=== PATIENT | male | born 1990 | race Caucasian/White ===

== ENCOUNTER 2022-05-23 02:58 | Emergency (ER) | payer SELFPAY ==
[2022-05-23] VITALS (10 sets, daily range): BP systolic 00–165; BP diastolic 00–100; PULSE 0–120; RESP 0–18; TEMP -17.7–36.7; O2SAT 0–100; BMI 22.8
--- NOTE | 2022-05-23 03:00 | PC.NURSE ---
Patient is currently sitting in his bed with seizure pads in place. Patient is staring at the wall and is talking to himself. Patient is chewing on his tongue with obvious scar tissue. Nursing staff advised patient to stop chewing his tongue. His mouth was cleaned using a 10cc syringe and water. Patient continues to chew tongue. MD notified of nursing concerns of patient continuing to chew his tongue after being told to stop. MD gave an order for 1mg ativan IV. Medication given to patient.
--- NOTE | 2022-05-23 03:21 | PC.NURSE ---
Patient checked into er with c/o tongue injury following a seizure. Once pt was checked into the ER the patient refused to have any labs drawn or vital signs checked. Patient stated that he did not want to be here and didn't want to be seen or touched. We advised patient that he did not have to be checked if he did not wish to. Patient decided to leave the hospital without being seen.
--- NOTE | 2022-05-23 03:30 | PC.NURSE ---
patients clothing removed and patient was placed in a hospital gown to ensure patient safety.
--- NOTE | 2022-05-23 04:23 | PC.NURSE ---
Patient continues to chew tongue. Patient is looking at the wall on the right side of his room and is chewing on his tongue. Patient is crying and speaking to himself. Nursing staff again asked patient to stop chewing his tongue. Patient refused.
--- NOTE | 2022-05-23 04:31 | PC.NURSE ---
Patient disloged his iv. Pt continues to be confused and focused on the wall. Will answer questions when asked multiple times.
[2022-05-23 04:49] LABS: Blood Urea Nitrogen 32 mg/dl (9-20); Calcium 9.4 mg/dl (8.4-10.2); Carbon Dioxide 26 mmol/L (22.0-30.0); Chloride 100 mmol/L (98-107); Creatinine Clearance Estimated 94 mL/min (50-200); Estimated Glomerular Filt Rate 79 ml/min (>60); GFR (African American) 95 ML/MIN (>60); Glucose 129 mg/dl (74-100); Sodium 136 mmol/L (136-145)
[2022-05-23 04:50] LABS: Acetaminophen < 10 ug/ml (10-30); Carbamazepine (Tegretol) < 3.0 ug/ml (4.0-12.0)
--- NOTE | 2022-05-23 05:00 | PC.NURSE ---
Called patients and left a message for her to return our call regarding at [phone]
[2022-05-23 05:02] LABS: Basophils # 0.1 K/mm3 (0-0.2); Basophils % 1.3 % (0.1-2.0); Eosinophils % 0.2 % (0.1-12.0); Hematocrit 35.8 % (42.0-52.0); Hemoglobin 11.6 g/dL (14.1-18.0); Lymphocytes # 3.1 K/mm3 (0.7-4.5); Lymphocytes % 28.4 % (10-50); Mean Corpuscular HGB Conc 32.4 g/dL (31.8-35.4); Mean Corpuscular Hemoglobin 31.5 pg (27.0-31.2); Mean Corpuscular Volume 97.3 fl (80-94); Mean Platelet Volume 8.2 fl (7.4-10.4); Monocytes # 0.9 K/mm3 (0.1-1.0); Neutrophils # 6.8 K/mm3 (1.8-7.8); Platelet Count 388 K/mm3 (142-424); Red Blood Count 3.68 M/mm3 (4.60-6.20); Red Cell Distribution Width 13.7 % (11.5-17.5)
[2022-05-23 05:24] LABS: Coronavirus 19, PCR Not Detected (NotDetected); Influenza A, PCR Not Detected (NotDetected); Influenza B, PCR Not Detected (NotDetected)
[2022-05-23 05:42] LABS: Microscopic, Urine URINE MICROSCOPIC (MICROSCOPIC)
[2022-05-23 05:48] LABS: Appearance,Urine CLEAR (Clear); Bilirubin,Urine Negative (Negative); Blood, Urine Negative (Negative); Color,Urine YELLOW (Yellow); Glucose,Urine (UA) Negative (Negative); Ketones,Urine 1+ (Negative); Leukocyte Esterase,Urine Negative (Negative); Nitrate,Urine Negative (Negative); Protein,Urine Negative (Negative); Urobilinogen,Urine 0.2 EU/dl (0.2)
[2022-05-23 05:51] LABS: Bacteria,Urine Trace /lpf; Squamous Epithelial Cell,Urine Occasional #/hpf (0-5)
[2022-05-23 05:55] LABS: Barbiturates Screen,Urine Negative ng/ml (<200)
[2022-05-23 05:56] LABS: Benzodiazepines Screen,Urine Negative ng/ml (<200)
[2022-05-23 05:57] LABS: Cannabinoid Screen,Urine Positive ng/ml (<50)
[2022-05-23 05:58] LABS: Cocaine Screen,Urine Negative ng/ml (<300)
[2022-05-23 05:59] LABS: Methadone Screen,Urine Negative ng/ml (<300); Opiate Screen,Urine Negative ng/ml (<300)
[2022-05-23 06:00] LABS: Phencyclidine Screen,Urine Negative ng/ml (<25)
[2022-05-23 06:37] LABS: Amphetamine/Metha Screen,Urine Positive ng/ml (<1000)
--- NOTE | 2022-05-23 07:05 | PC.NURSE ---
report received from donna Reyna. sitter remains at bedside. no needs voiced by patient.
--- NOTE | 2022-05-23 07:19 | PC.NURSE ---
TOAN Biggs is now at BS for 1:1. She relieved TOAN Mosley this morning
--- NOTE | 2022-05-23 07:19 | HMH.EDAMS ---
ED Disposition Clinical Impression: Tongue biting, Amphetamine abuse Tongue injury Qualifiers: Encounter type: initial encounter Qualified Code(s): S09.93XA - Unspecified injury of face, initial encounter Disposition: Home, Self-Care Condition on Discharge: Fair Instructions: DI for Substance Use Disorder Additional Instructions: use meds and see pcp for follow up Prescriptions: clindamycin HCL [Clindamycin HCl] 300 mg PO TID #30 cap Transmission Status: Pending to [id number] Referrals: Provider,Referral, [Primary Care Provider] - - Critical Care Critical Care Time: No Attestation: On 05/23/22, the high probability of a clinically significant, sudden or life threatening deterioration of the following system(s) required my full and direct attention, intervention and personal management. The time I documented below is in addition to time spent performing reported procedures but includes the following listed in this critical care notation. Medical Decision Making - Medical Records Medical records reviewed: Yes: I reviewed the patient's medical records. - Jose Angel Inquiry Pt receiving controlled substance: No Vital Signs: 05/23/22 03:14 05/23/22 03:58 05/23/22 05:18 Temperature 0 F L 98.1 F Temperature Source Oral Axillary Pulse Rate 0 L 120 H Pulse Rate [Apical] 80 Respiratory Rate 0 L 18 Blood Pressure 00/00 L 157/90 H Blood Pressure [Right Arm] 158/100 H Blood Pressure Mean Blood Pressure Mean [Right Arm] 119 Blood Pressure Source Automatic Cuff Blood Pressure Source [Right Arm] Automatic Cuff Blood Pressure Position Sitting Blood Pressure Position [Right Arm] Sitting 02 Sat by Pulse Oximetry 98 99 Oxygen Delivery Method Room Air Room Air 05/23/22 05:30 05/23/22 06:00 05/23/22 06:30 Temperature Temperature Source Pulse Rate 116 H 119 H 118 H Pulse Rate [Apical] Respiratory Rate Blood Pressure 161/97 H 163/92 H 165/97 H Blood Pressure [Right Arm] Blood Pressure Mean 117 123 114 Blood Pressure Mean [Right Arm] Blood Pressure Source Blood Pressure Source [Right Arm] Blood Pressure Position Blood Pressure Position [Right Arm] 02 Sat by Pulse Oximetry 99 100 100 Oxygen Delivery Method 05/23/22 07:31 Temperature Temperature Source Pulse Rate 120 H Pulse Rate [Apical] Respiratory Rate Blood Pressure 149/93 H Blood Pressure [Right Arm] Blood Pressure Mean Blood Pressure Mean [Right Arm] Blood Pressure Source Automatic Cuff Blood Pressure Source [Right Arm] Blood Pressure Position Supine Blood Pressure Position [Right Arm] 02 Sat by Pulse Oximetry 99 Oxygen Delivery Method Room Air - Lab Data Lab results reviewed: Yes: I reviewed the patient's lab results. Lab Results 05/23/22 04:14: WBC 11.0 H, RBC 3.68 L, Hgb 11.6 L, Hct 35.8 L, MCV 97.3 H, MCH 31.5 H, MCHC 32.4, RDW 13.7, Plt Count 388, MPV 8.2, Neut % (Auto) 62.0, Lymph % (Auto) 28.4, Harney % (Auto) 8.0, Eos % (Auto) 0.2, Baso % (Auto) 1.3, Neut # (Auto) 6.8, Lymph # (Auto) 3.1, Harney # (Auto) 0.9, Eos # (Auto) 0.0, Baso # (Auto) 0.1 05/23/22 04:14: Sodium 136, Potassium 4.0, Chloride 100, Carbon Dioxide 26, Anion Gap 14.0, BUN 32 H, Creatinine 1.10, Estimated Creat Clear 94, Estimated GFR 79, Est GFR ( Amer) 95, Glucose 129 H, Calcium 9.4, Salicylates 1.0 L, Acetaminophen < 10 L, Carbamazepine < 3.0 L 05/23/22 04:14: Plasma/Serum Alcohol < 10 05/23/22 05:13: SARS-CoV-2 (PCR) Not detected, Influenza A Untype (PCR) Not detected, Influenza Type B (PCR) Not detected 05/23/22 05:37: Urine Color Yellow, Urine Appearance Clear, Urine pH 6.0, Ur Specific Vance 1.020, Urine Protein Negative, Urine Glucose (UA) Negative, Urine Ketones 1+, Urine Blood Negative, Urine Nitrate Negative, Urine Bilirubin Negative, Urine Urobilinogen 0.2, Ur Leukocyte Esterase Negative, Urine RBC None, Urine WBC 3-5, Ur Squamous Epith Cells Occasional, Urine Bacteria Trace 05/23/22
[2022-05-23 07:25] LABS: Ethyl Alcohol < 10 mg/dl (0-10)
--- NOTE | 2022-05-23 07:29 | PC.NURSE ---
called for a meal tray
--- NOTE | 2022-05-23 07:39 | PC.NURSE ---
Dietary brought breakfast tray. I delivered to ED room 6 for the patient; he states, i dont want anything right now. I left sitting at BS on BS table with everything accessible. Dian, TOAN at BS.
--- NOTE | 2022-05-23 07:46 | PC.NURSE ---
ISAI FAM at assessing pt.
--- NOTE | 2022-05-23 07:50 | PC.NURSE ---
attempted to call pt with number listed on demographics. Phone number is not pt phone number
--- NOTE | 2022-05-23 07:54 | PC.NURSE ---
contacted pt step mother who states the is working but she will have her call the ER
--- NOTE | 2022-05-23 08:07 | PC.NURSE ---
Pt called, informed her pt was back to his baseline per MD and that he will be DC. States she will try to come get him when she gets a break at work.
--- NOTE | 2022-05-23 08:24 | PC.NURSE ---
Patients ride has arrived and is at BS. Ileana RN at BS going over discharge instructions with patient and family
--- NOTE | 2022-05-23 08:31 | PC.NURSE ---
d/c instructions verbalized with . per request, name and numbers of psychiatric facilities given to . signed d/c sheet and pt ambulated out of department with no issues.
== END 2022-05-23 08:32 | disposition home or self-care (01) ==
PROVIDERS: Emergency Provider Emergency Medicine
DX: K13.1 Cheek and lip biting (principal); F15.10 Other stimulant abuse, uncomplicated; F12.90 Cannabis use, unspecified, uncomplicated; S09.93XA Unspecified injury of face, initial encounter; R56.9 Unspecified convulsions
CPT/HCPCS: 80048; 80156; 80305; 80329; 81001; 85025; 96365; 96366; 96375; 99284; C9803; U0003; U0005

== ENCOUNTER 2022-05-23 16:50 | Emergency (ER) | payer SELFPAY ==
[2022-05-23 16:51] VITALS: BP 170/101; PULSE 129; RESP 18; TEMP 36.9; O2SAT 96; BMI 26.6
--- NOTE | 2022-05-23 17:05 | PC.NURSE ---
Cabrera planned giving officer at BS with patient.
[2022-05-23 17:09] VITALS: PULSE 122; O2SAT 95
--- NOTE | 2022-05-23 17:22 | PC.NURSE ---
notified ER MD of pt presenting injuries, ER MD gave verbal orders for CT head, CT cspine, CT facial bones
--- NOTE | 2022-05-23 17:34 | PC.NURSE ---
notified rad of CT orders, spoke with Jana
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
--- NOTE | 2022-05-23 17:43 | PC.NURSE ---
pt back from ct , police at bedside
--- NOTE | 2022-05-23 17:45 | PC.NURSE ---
Pt refused all CT's
--- NOTE | 2022-05-23 17:46 | PC.NURSE ---
Dr Myers in with pt
[2022-05-23 18:00] VITALS: BP 160/100; PULSE 120; RESP 20; TEMP 36.9; O2SAT 94
== END 2022-05-23 18:01 ==
PROVIDERS: Emergency Provider Emergency Medicine; PCP Emergency Medicine
DX: Z02.89 Encounter for other administrative examinations (principal); F15.10 Other stimulant abuse, uncomplicated; S09.93XA Unspecified injury of face, initial encounter; S60.221A Contusion of right hand, initial encounter; S00.83XA Contusion of other part of head, initial encounter; Y04.0XXA Assault by unarmed brawl or fight, initial encounter
CPT/HCPCS: 99282

== ENCOUNTER 2022-12-29 09:29 | Emergency (ER) | payer OTHER, MEDICAID, SELFPAY ==
[2022-12-29 09:47] VITALS: BP 158/105; PULSE 143; RESP 20; O2SAT 98; BMI 28.1
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
[2022-12-29 10:18] VITALS: BP 120/80; PULSE 100; RESP 18; TEMP 37; O2SAT 99
== END 2022-12-29 10:23 ==
PROVIDERS: Emergency Provider Emergency Medicine
DX: S00.83XA Contusion of other part of head, initial encounter (principal); F15.90 Other stimulant use, unspecified, uncomplicated; V49.40XA Driver injured in collision with unspecified motor vehicles in traffic accident, initial encounter
CPT/HCPCS: 99283

== ENCOUNTER 2023-06-30 22:21 | Emergency (ER) | payer OTHER, MEDICAID, SELFPAY ==
[2023-06-30 22:21] VITALS: BP 144/100; PULSE 64; RESP 20; TEMP 38.8; O2SAT 96; BMI 25.0
--- NOTE | 2023-06-30 22:50 | PC.NURSE ---
Manual BP 140/100
--- NOTE | 2023-06-30 22:53 | PC.NURSE ---
Dr. Hines at BS
--- NOTE | 2023-06-30 22:55 | HMH.EDGENADL ---
Discharge Plan Disposition Patient Disposition: Home, Self-Care Condition: Fair Prescriptions Prescriptions: No Action methocarbamol 500 MG tablet 500 mg PO DAILY trazodone 100 MG tablet 100 mg PO DAILY fluoxetine 20 MG tablet 20 mg PO DAILY chlorhexidine gluconate 250 ML liquid 250 ml TP DAILY olanzapine 20 MG tablet 20 mg PO DAILY bupropion HCl 150 MG tablet extended release 24 hr 150 mg PO DAILY carbamazepine 200 MG capsule, ER multiphase 12 hr 200 mg PO DAILY omeprazole 20 MG tablet,delayed release (DR/EC) 20 mg PO DAILY guanfacine 1 MG tablet extended release 24 hr 1 mg PO DAILY clindamycin HCl 300 MG capsule 300 mg PO TID Qty: 30 0RF Referrals Follow up/Referrals: Provider,Referral, [Primary Care Provider] - See instructions Activity Restrictions/Add. Instructions Additional Instructions/Restrictions: Use the provided neomycin eyedrops 3 drops in each eye 4 times daily for the next week. Use the other eyedrops if needed for pain. Avoid illicit substances. Wash your hands frequently to avoid spreading infection from your eyes. Follow-up with your primary care physician. Return to the emergency department with new or worsening symptoms. Clinical Impressions Clinical Impression: Medical clearance for incarceration, Conjunctivitis Discharge ED Provider: Francisco Shepard General Adult HPI <Nasir Hines MD - Last Filed: 06/30/23 23:01> General Chief complaint: Medical Clearance Stated complaint: medical clearance Time Seen by Provider: 06/30/23 22:21 Mode of Arrival: Ambulatory Source of Information: Law Enforcement Limitations: No Limitations Description of Symptoms (Recalled from ER Triage Doc. by RN): pt is here for medical clearance. pt has no c/o History of Present Illness HPI narrative: Patient is a 32-year-old male who presents for medical clearance. Patient is largely noncompliant with my questioning upon arrival. He denies ingestions. Police state that he has had multiple complaints on him today where he was found with sweating, refusing answer questions, refusing ingestants. Upon asking patient initially he understands where he is what year it is. He denies ingestants. States that he has had red eyes over the course of the day. However upon subsequent questioning it appears he seems to nod off. He denies headache, chest pain, abdominal pain, other acute complaints at this time. Related Data Home Medications Medication Instructions Recorded Confirmed bupropion HCl 150 mg 24 hr tablet, 150 mg PO DAILY seizures 05/23/22 05/23/22 extended release carbamazepine 200 mg 200 mg PO DAILY seizures 05/23/22 05/23/22 capsule,extended release [id number] chlorhexidine gluconate 2 % 250 ml topical DAILY mouth sore 05/23/22 05/23/22 topical liquid fluoxetine 20 mg tablet 20 mg PO DAILY antidepressant 05/23/22 05/23/22 guanfacine 1 mg tablet,extended 1 mg PO DAILY add 05/23/22 05/23/22 release 24 hr methocarbamol 500 mg tablet 500 mg PO DAILY Pain 05/23/22 05/23/22 olanzapine 20 mg tablet 20 mg PO DAILY antipsychotic 05/23/22 05/23/22 omeprazole 20 mg tablet,delayed 20 mg PO DAILY GERD 05/23/22 05/23/22 release trazodone 100 mg tablet 100 mg PO DAILY antidepressant 05/23/22 05/23/22 Previous Rx's Medication Instructions Recorded clindamycin HCl 300 mg capsule 300 mg PO TID #30 caps 05/23/22 Allergies Allergy/AdvReac Type Severity Reaction Status Date / Time No Known Allergies Allergy Verified 10/09/18 16:51 [facility] <Nasir Hines MD - Last Filed: 06/30/23 23:01> [facility] Disclaimer: The information contained in this section may have been updated after the patient was seen, as this information can be updated by other users. Social History (Updated 06/30/23 @ 23:01 by Nasir Hines MD) Smoking Status: Current every day smoker tobacco type: cigarettes alcohol intake: never substance use type: carrillo
--- NOTE | 2023-06-30 23:08 | PC.NURSE ---
Pt refused to have labs drawn.
--- NOTE | 2023-06-30 23:14 | PC.NURSE ---
Pt refused UA as well
--- NOTE | 2023-07-01 00:33 | PC.NURSE ---
Dr. Shepard at BS
[2023-07-01 00:46] VITALS: BP 137/87; PULSE 67; RESP 18; TEMP 37.6; O2SAT 96
== END 2023-07-01 00:50 | disposition home or self-care (01) ==
PROVIDERS: Emergency Provider Emergency Medicine
DX: H10.33 Unspecified acute conjunctivitis, bilateral (principal); F17.210 Nicotine dependence, cigarettes, uncomplicated
CPT/HCPCS: 99283

== ENCOUNTER 2023-07-01 08:15 | Inpatient (IN) | payer MEDICAID, SELFPAY ==
[2023-07-01] VITALS (19 sets, daily range): BP systolic 96–150; BP diastolic 58–94; PULSE 96–130; RESP 16–34; TEMP 36.4–37.2; O2SAT 93–100; BMI 25.1; BMI 26.6
--- NOTE | 2023-07-01 08:16 | XR_ITS ---
FINAL REPORT CLINICAL HISTORY: AMS COMPARISON: None FINDINGS: The lung porras are underinflated. The heart size is normal. The mediastinum is normal. There is no focal infiltrate or edema. There are no pleural effusions. There is no pneumothorax. There is no osseous abnormality. IMPRESSION: No acute cardiopulmonary process Underinflated lung porras bilaterally. Reviewed, Interpreted and Dictated by Alok Perdue MD Transcribed by Vickie Molina Authenticated and . [facility]
--- NOTE | 2023-07-01 08:16 | CT_ITS ---
FINAL REPORT TECHNIQUE: Axial CT images were performed through the head. Coronal and sagittal reformatted images were submitted. This study was performed with techniques to keep radiation doses as low as reasonably achievable (ALARA). Individualized dose reduction techniques using automated exposure control or adjustment of mA and/or kV according to the patient's size were employed. CLINICAL HISTORY: AMS COMPARISON: None FINDINGS: The ventricles are normal in size. There is no evidence of hemorrhage. There is no mass or edema identified. There is no abnormal extra-axial fluid seen. The sinuses are well aerated. IMPRESSION: No acute intracranial process. Reviewed, Interpreted and Dictated by Alok Perdue MD Transcribed by Vickie Molina Authenticated and [facility]
--- NOTE | 2023-07-01 08:31 | HMH.EDGENADL ---
Discharge Plan Disposition Patient Disposition: Admitted Chief Complaint: Altered Mental Status Clinical Impressions Clinical Impression: Methamphetamine use, Non-traumatic rhabdomyolysis, CARINA (acute kidney injury), SIRS (systemic inflammatory response syndrome), Encephalopathy, Biliary sludge, Ground glass opacity present on imaging of lung Discharge ED Provider: Babita Chappell General Adult HPI General Chief complaint: Altered Mental Status Stated complaint: ams Time Seen by Provider: 07/01/23 08:16 Mode of Arrival: Wheelchair History of Present Illness HPI narrative: This patient is a 32-year-old male with a history of amphetamine abuse with multiple previous evaluations for medical clearance for incarceration related to this on medical record review presenting to the emergency department for evaluation with concern for altered mental status. Patient was evaluated last night for med clearance. At that time, he was alert, oriented, buut febrile, diaphoretic, and having rhythmic movements and fidgeting. Patient was refusing all work-up at that time and it was documented that the patient had medical capacity. He then was alert and oriented. His mental status improved throughout observation over the night and his symptoms subsided. Given this, the patient was deemed to be medically clear and appropriate for discharge. He was discharged, however he did not leave hospital property. He stayed over at the side of the building according to workers at the hospital who saw him there. Workers at the hospital Going out to check on him, and he was unable to answer questions appropriately with worsened rhythmic movements and diaphoresis. Given this, they brought the patient back in via wheelchair. Patient does not contribute to history given acute encephalopathy. Related Data Home Medications Medication Instructions Recorded Confirmed bupropion HCl 150 mg 24 hr tablet, 150 mg PO DAILY seizures 05/23/22 05/23/22 extended release carbamazepine 200 mg 200 mg PO DAILY seizures 05/23/22 05/23/22 capsule,extended release [id number] chlorhexidine gluconate 2 % 250 ml topical DAILY mouth sore 05/23/22 05/23/22 topical liquid fluoxetine 20 mg tablet 20 mg PO DAILY antidepressant 05/23/22 05/23/22 guanfacine 1 mg tablet,extended 1 mg PO DAILY add 05/23/22 05/23/22 release 24 hr methocarbamol 500 mg tablet 500 mg PO DAILY Pain 05/23/22 05/23/22 olanzapine 20 mg tablet 20 mg PO DAILY antipsychotic 05/23/22 05/23/22 omeprazole 20 mg tablet,delayed 20 mg PO DAILY GERD 05/23/22 05/23/22 release trazodone 100 mg tablet 100 mg PO DAILY antidepressant 05/23/22 05/23/22 Previous Rx's Medication Instructions Recorded clindamycin HCl 300 mg capsule 300 mg PO TID #30 caps 05/23/22 Allergies Allergy/AdvReac Type Severity Reaction Status Date / Time No Known Allergies Allergy Verified 10/09/18 16:51 [facility] Disclaimer: The information contained in this section may have been updated after the patient was seen, as this information can be updated by other users. Social History Smoking Status: Current every day smoker tobacco type: cigarettes alcohol intake: never substance use type: marijuana, heroin and sedatives current occupational status: other Travel in the last 8 weeks: None ROS Obtained: Yes unobtainable due to mental status Physical Exam General General appearance: alert and in distress Comment: Awake, fidgeting, flailing around with choreathetotic movements. Diaphoretic and very disheveled-appearing Head Head exam: atraumatic and normocephalic Eye Eye exam: Present normal appearance, PERRL and EOMI ENT ENT exam: Present normal exam, normal oropharynx, mucous membranes dry and normal external ear exam Neck Neck exam: Present normal inspection, full ROM and trachea midline; Absent tenderness Chest Chest inspection: Present normal inspection and
[2023-07-01 08:34] LABS: Basophils # 0.1 K/mm3 (0-0.2); Basophils % 0.3 % (0.1-2.0); Eosinophils # 0.2 K/mm3 (0.0-0.4); Eosinophils % 0.9 % (0.1-12.0); Hematocrit 49.1 % (42.0-52.0); Hemoglobin 16.2 g/dL (14.1-18.0); Lymphocytes # 4.1 K/mm3 (0.7-4.5); Mean Corpuscular HGB Conc 32.9 g/dL (31.8-35.4); Mean Corpuscular Hemoglobin 30.6 pg (27.0-31.2); Mean Corpuscular Volume 92.9 fl (80-94); Mean Platelet Volume 8.2 fl (7.4-10.4); Monocytes # 1.7 K/mm3 (0.1-1.0); Monocytes % 7.4 % (1.7-9.3); Neutrophils % 73.5 % (37.0-80.0); Platelet Count 331 K/mm3 (142-424); Red Blood Count 5.28 M/mm3 (4.60-6.20); Red Cell Distribution Width 14.6 % (11.5-17.5); White Blood Count 23.1 K/mm3 (4.8-10.8)
[2023-07-01 08:36] LABS: MANUAL DIFFERENTIAL MANUAL DIFFERENTIAL (MANUAL DIFF)
--- NOTE | 2023-07-01 08:41 | ECG_ITS ---
APPROVED REPORT Exam: Resting ECG HR:121 bpm ECG Measurements Heart Rate 121 AXES IN 119 P 57 QRSd 84 QRS 55 QT 307 T 3 QTc 379 Conclusion SINUS TACHYCARDIA WITH SHORT IN INTERVAL ABNORMAL RHYTHM ECG UNCONFIRMED REPORT Electronically signed by : Marcus Nation MD 07/02/2023 19:45:45
[2023-07-01 08:44] LABS: Chloride 100 mmol/L (98-107)
[2023-07-01 08:45] LABS: Potassium 4.6 mmoL/L (3.5-5.1); Sodium 139 mmol/L (136-145)
[2023-07-01 08:47] LABS: Alanine Aminotransferase 213 U/L (12-78); Alkaline Phosphatase 106 U/L (38-126); Anion Gap 16.6 mEq/L (5-15); Aspartate Amino Transferase 640 U/L (17-59); Bilirubin,Total 1.7 mg/dl (0.2-1.3); Blood Urea Nitrogen 50 mg/dl (9-20); Carbon Dioxide 27 mmol/L (22.0-30.0); Estimated Glomerular Filt Rate 42 ml/min (>60); GFR (African American) 50 ML/MIN (>60); Lymphocytes % 27 % (10-50); Monocytes % 5 % (2-9); Neutrophils % 68 % (42-76); Total Cells Counted 100
[2023-07-01 08:48] LABS: Albumin Level 4.8 g/dl (3.5-5.0); Albumin/Globulin Ratio 1.2 (1.1-1.8); Calcium 9.8 mg/dl (8.4-10.2); Globulin 3.9 g/dL (1.3-3.2); Glucose 145 mg/dl (74-100); Platelet Estimate Normal; RBC Morphology Normal; Total Protein,Serum 8.7 g/dl (6.3-8.2)
[2023-07-01 08:56] LABS: Ethyl Alcohol < 10 mg/dl (0-10); Lactic Acid 2.1 mmol/L (0.7-2.1)
[2023-07-01 08:57] LABS: Acetaminophen < 10 ug/ml (10-30); Creatinine Clearance Estimated 63 mL/min (50-200); Salicylate < 1.0 mg/dL (2.0-20.0)
--- NOTE | 2023-07-01 08:59 | CT_ITS ---
FINAL REPORT TECHNIQUE: The patient was injected with IV contrast. Axial images were obtained through the chest in a PE protocol. 3-D reconstruction images were also performed. Individualized dose reduction techniques using automated exposure control or adjustment of the MA and/or KV according to patient's size were employed. CLINICAL HISTORY: AMS, hypoxic resp failure COMPARISON: None FINDINGS: Mediastinal vasculature is adequately opacified. No pulmonary artery filling defects are identified to suggest PE. There is no aortic dissection. There is no axillary adenopathy. There is no hilar or mediastinal adenopathy. The heart size is normal. There is no pericardial or pleural effusion. There are patchy groundglass opacities in the periphery of both lungs which could be related to bilateral pneumonia. Limited images of the upper abdomen are unremarkable. IMPRESSION: No pulmonary embolus or dissection. Patchy areas of groundglass opacity. Reviewed, Interpreted and Dictated by Alok Perdue MD Transcribed by Liv Adair Authenticated and . [facility]
--- NOTE | 2023-07-01 08:59 | CT_ITS ---
FINAL REPORT TECHNIQUE: After the administration of oral and intravenous contrast, axial images were obtained through the abdomen and pelvis by computed tomography. The study was performed with techniques to keep radiation dose as low as reasonably achievable, (ALARA). Individual dose reduction techniques using automated exposure control or adjustment of mA and/or kV according to the patient's size were employed. CLINICAL HISTORY: transaminitis, AMS COMPARISON: None FINDINGS: Abdomen: There is a localized opacity in the left lung base best seen on axial image #12 measuring 1 cm in size. There is mild fatty infiltration of the liver present. The gallbladder is present. The spleen, pancreas, adrenals and kidneys appear unremarkable. The aorta is normal in caliber. There is no free fluid or adenopathy. Pelvis: The appendix is not identified. The urinary bladder is unremarkable. There is no free fluid or adenopathy. IMPRESSION: Mild fatty infiltration of the liver. Localized opacity left lung base measuring 1 cm in size, favor inflammatory etiology but neoplasm cannot be excluded. Would recommend a follow-up chest CT in 1 to 3 months for follow-up. Reviewed, Interpreted and Dictated by Alok Perdue MD Transcribed by Vickie Molina Authenticated and [facility]
[2023-07-01 09:01] LABS: Troponin I < 0.01 ng/ml (0.00-0.034)
[2023-07-01 09:05] LABS: T4 (Thyroxine) 16.6 ug/dl (5.53-11.0)
--- NOTE | 2023-07-01 09:07 | US_ITS ---
FINAL REPORT CLINICAL HISTORY: transaminitis, AMS FINDINGS: Sonographic images of the right upper quadrant were obtained. The pancreas is partially obscured. Liver demonstrates areas of focal fatty infiltration. There is sludge in the gallbladder without evidence of stones. There is no evidence of biliary ductal dilatation.The common duct measures 3 mm. Limited images of the right kidney are unremarkable. IMPRESSION: Focal fatty infiltration of the liver. Gallbladder sludge without evidence of stones. Reviewed, Interpreted and Dictated by Alok Perdue MD Transcribed by Anali Bean Authenticated and [facility]
--- NOTE | 2023-07-01 09:08 | PC.NURSE ---
pt in CT at this time maurirn with pt.
[2023-07-01 09:19] LABS: Thyroid Stimulating Hormone 1.02 uIU/mL (0.465-4.68)
[2023-07-01 09:25] LABS: Procalcitonin 0.919 ng/mL (0.0-2.0)
--- NOTE | 2023-07-01 09:42 | PC.NURSE ---
US at bedside
[2023-07-01 09:56] LABS: VBG Base Excess -0.9 mmol/L (-2.4-2.3); VBG Oxygen Saturation 95.4 % (50-70); VBG PCO2 40.6 mmol/L (35-51); VBG PH 7.39 mmol/L (7.31-7.41); VBG Total CO2 25.3 mmol/L (23-27)
--- NOTE | 2023-07-01 10:15 | PC.NURSE ---
Mary JOYA at bedside for 1-1 obs.
--- NOTE | 2023-07-01 10:47 | PC.NURSE ---
contacted rad to check on status of CT results, waiting automatic transmission mechanic back
--- NOTE | 2023-07-01 11:31 | PC.NURSE ---
Dr. Chappell and 3x staff members attempted to perform a lumbar puncture. Pt was pre-medicated with Ativan 2mg IV & Droperidol 2.5mg IVP, however pt continued to thrash in bed during cleaning process and was striking at staff. MD ordered another Ativan 2mg IVP, this was given, however pt continued to become more violent and it was not safe to continue per MD Chappell. Staff was obtain to obtain a rectal temp (98.5) and placed monson catheter (16fr monson).
--- NOTE | 2023-07-01 11:34 | EXP.PHA.CONS ---
Pharmacy Consult Date: 07/01/23 Time: 11:34 Referring provider: DR. BYRD Reason for Consult:: VANCOMYCIN DOSING Allergies Allergy/AdvReac Type Severity Reaction Status Date / Time No Known Allergies Allergy Verified 10/09/18 16:51 Home Medications Medication Instructions Recorded Confirmed Type bupropion HCl 150 mg 24 hr tablet, 150 mg PO DAILY seizures 05/23/22 05/23/22 History extended release carbamazepine 200 mg 200 mg PO DAILY seizures 05/23/22 05/23/22 History capsule,extended release [id number] chlorhexidine gluconate 2 % 250 ml topical DAILY mouth sore 05/23/22 05/23/22 History topical liquid clindamycin HCl 300 mg capsule 300 mg PO TID #30 caps 05/23/22 Rx fluoxetine 20 mg tablet 20 mg PO DAILY antidepressant 05/23/22 05/23/22 History guanfacine 1 mg tablet,extended 1 mg PO DAILY add 05/23/22 05/23/22 History release 24 hr methocarbamol 500 mg tablet 500 mg PO DAILY Pain 05/23/22 05/23/22 History olanzapine 20 mg tablet 20 mg PO DAILY antipsychotic 05/23/22 05/23/22 History omeprazole 20 mg tablet,delayed 20 mg PO DAILY GERD 05/23/22 05/23/22 History release trazodone 100 mg tablet 100 mg PO DAILY antidepressant 05/23/22 05/23/22 History New Prescriptions to Start Prescriptions: Height: 1.78 m Weight: 79.379 kg Laboratory Results:: Laboratory Results - last 24 hr 07/01/23 08:24: WBC 23.1 H*, RBC 5.28, Hgb 16.2, Hct 49.1, MCV 92.9, MCH 30.6, MCHC 32.9, RDW 14.6, Plt Count 331, MPV 8.2, Neut % (Auto) 73.5, Lymph % (Auto) 18.0, Mingo % (Auto) 7.4, Eos % (Auto) 0.9, Baso % (Auto) 0.3, Neut # (Auto) 17.0 H, Lymph # (Auto) 4.1, Mingo # (Auto) 1.7 H, Eos # (Auto) 0.2, Baso # (Auto) 0.1, Total Counted 100, Neutrophils % (Manual) 68, Lymphocytes % (Manual) 27, Monocytes % (Manual) 5, Platelet Estimate Normal, RBC Morphology Normal, Sodium 139, Potassium 4.6, Chloride 100, Carbon Dioxide 27, Anion Gap 16.6 H, BUN 50 H, Creatinine 1.90 H, Estimated Creat Clear 63, Estimated GFR 42 L, Est GFR ( Amer) 50 L, Glucose 145 H, Lactate 2.1, Calcium 9.8, Total Bilirubin 1.7 H, AST 640 H*, ALT 213 H, Alkaline Phosphatase 106, Total Creatine Kinase 07010 H*, Troponin I < 0.01, Total Protein 8.7 H, Albumin 4.8, Globulin 3.9 H, Albumin/Globulin Ratio 1.2, Procalcitonin 0.919, TSH 1.02, Thyroxine (T4) 16.6 H, Salicylates < 1.0 L, Acetaminophen < 10 L, Plasma/Serum Alcohol < 10 07/01/23 08:53: VBG pH 7.39, VBG pCO2 40.6, VBG pO2 77.0 H, VBG HCO3 24.0, VBG Total CO2 25.3, VBG O2 Saturation 95.4 H, VBG Base Excess -0.9 Assessment and Plan Assessment and plan all Dx Assessment and Plan for all problems:: Pharmacokinetic dosing service Objective: Patient: Floor: Age: 32 yo Serum creatinine: 1.90 mg/dL Height: 70.0 Inches Weight (kg): 79.4 Assessment: IBW (kg): 73.00 Dosing wt(kg): 79.4 Estimated Creatinine clearance (ml/min): 58.2 CRCL method: Cockcroft and Gault using ibw(default). Drug selected: Vancomycin Loading dose (mg): Vd (liters): 63.5 (factor used: 0.8 L/kg) Zoltan (hr-1): 0.053 Half life (hrs): 13.08 CLvanco=?? 3.365 L/hr Recommended dose: 1500 mg Interval: 18 hrs Infusion time (hrs): 2.0 Predicted peak (mcg/mL): 36.5 Predicted trough (mcg/mL): 15.63 Total body weight is being used for vancomycin dosing. Recommendations: Give Vancomycin 1500 mg q 18 hrs with an expected Cpeak of 36.5 mcg/ml and an expected Ctrough of 15.63 mcg/ml AUC 0-24 /VINCENT Data: VINCENT 0.5 mcg/mL:?? AUC/VINCENT:? 1188.7 VINCENT 1.0 mcg/mL:?? AUC/VINCENT:? 594.4 --------- VINCENT 1.5 mcg/mL:?? AUC/VINCENT:? 396.2 VINCENT 2.0 mcg/mL:?? AUC/VINCENT:? 297.2 Thank you for the consult, will continue to follow. -SANDHYA KIRBY, JEFFERSOND
[2023-07-01 11:36] LABS: Microscopic, Urine URINE MICROSCOPIC (MICROSCOPIC)
[2023-07-01 11:40] LABS: Appearance,Urine CLEAR (Clear); Bilirubin,Urine Negative (Negative); Blood, Urine 3+ (Negative); Color,Urine YELLOW (Yellow); Glucose,Urine (UA) Negative (Negative); Ketones,Urine TRACE (Negative); Leukocyte Esterase,Urine Negative (Negative); Nitrate,Urine Negative (Negative); Protein,Urine 1+ (Negative); Specific Gravity, Urine 1.025 (1.005-1.030); Urobilinogen,Urine 0.2 EU/dl (0.2)
--- NOTE | 2023-07-01 11:43 | PC.NURSE ---
ER MD Chappell spoke with Dr. Rubio (hospitalist) states will call ER MD Chappell back after reviewing chart, unsure about admitting pt at this time
--- NOTE | 2023-07-01 11:54 | EXP.HP ---
History of Present Illness *Admission Date: 07/02/23 *Reason for visit:: confusion *History of present illness: Mr. Tatum is a 32 year old male with a history of methamphatamine abuse and who presented to the ED with confusion. Evaluation and workup in the ED revealed tachycardia with HR 130, tachypnea with RR 34, leukocytosis with 23K wbcs, creatinine of 1.9, BUN 50, CK of 29K, AST 640, ALT 213, t. bili 1.7, and a UDS +amphetamine/benzodiazepines. He has been to our ED multiple times regarding medical clearance for incarceration. He intermittently responds to my questions with one word responses. He denies pain and shortness of breath. [facility] Disclaimer: The information contained in this section may have been updated after the patient was seen, as this information can be updated by other users. Social History Smoking Status: Current every day smoker tobacco type: cigarettes alcohol intake: never substance use type: marijuana, heroin and sedatives current occupational status: other Travel in the last 8 weeks: None Review of Systems Review of Systems Review of systems:: pertinent systems reviewed and negative unless documented below *Neurologic Neurologic: Reports tremor(s) Comments: altered mental status Meds Home Medications and Allergies Home Medications Medication Instructions Recorded Confirmed Type trazodone 100 mg tablet 100 mg PO DAILYP PRN Sleep 05/23/22 07/01/23 History atenolol 25 mg tablet 25 mg PO DAILY High Blood Pressure 07/01/23 07/01/23 History bupropion HCl 200 mg tablet,12 hr 200 mg PO DAILY Mood 07/01/23 07/01/23 History sustained-release hydroxyzine pamoate 50 mg capsule 50 mg PO HS Mood 07/01/23 07/01/23 History mirtazapine 15 mg tablet 15 mg PO HSP PRN Sleep 07/01/23 07/01/23 History olanzapine 10 mg tablet 10 mg PO HS Mood 07/01/23 07/01/23 History risperidone 2 mg tablet 2 mg PO HS Mood 07/01/23 07/01/23 History venlafaxine 150 mg 150 mg PO DAILY Mood 07/01/23 07/01/23 History capsule,extended release 24 hr New Prescriptions to Start Prescriptions: Allergies Allergy/AdvReac Type Severity Reaction Status Date / Time No Known Allergies Allergy Verified 10/09/18 16:51 Exam Data for Last 24 hours Vital signs and Labs for Last 24 Hours: Temp Pulse Resp BP Pulse Ox O2 Del Method 98.9 F 130 H 34 H 127/72 95 Room Air 07/01/23 08:16 07/01/23 08:16 07/01/23 08:16 07/01/23 08:16 07/01/23 08:16 07/01/23 08:16 Laboratory Results - last 24 hr 07/01/23 08:24: WBC 23.1 H*, RBC 5.28, Hgb 16.2, Hct 49.1, MCV 92.9, MCH 30.6, MCHC 32.9, RDW 14.6, Plt Count 331, MPV 8.2, Neut % (Auto) 73.5, Lymph % (Auto) 18.0, Kimble % (Auto) 7.4, Eos % (Auto) 0.9, Baso % (Auto) 0.3, Neut # (Auto) 17.0 H, Lymph # (Auto) 4.1, Kimble # (Auto) 1.7 H, Eos # (Auto) 0.2, Baso # (Auto) 0.1, Total Counted 100, Neutrophils % (Manual) 68, Lymphocytes % (Manual) 27, Monocytes % (Manual) 5, Platelet Estimate Normal, RBC Morphology Normal, Sodium 139, Potassium 4.6, Chloride 100, Carbon Dioxide 27, Anion Gap 16.6 H, BUN 50 H, Creatinine 1.90 H, Estimated Creat Clear 63, Estimated GFR 42 L, Est GFR ( Amer) 50 L, Glucose 145 H, Lactate 2.1, Calcium 9.8, Total Bilirubin 1.7 H, AST 640 H*, ALT 213 H, Alkaline Phosphatase 106, Total Creatine Kinase 85386 H*, Troponin I < 0.01, Total Protein 8.7 H, Albumin 4.8, Globulin 3.9 H, Albumin/Globulin Ratio 1.2, Procalcitonin 0.919, TSH 1.02, Thyroxine (T4) 16.6 H, Salicylates < 1.0 L, Acetaminophen < 10 L, Plasma/Serum Alcohol < 10 07/01/23 08:53: VBG pH 7.39, VBG pCO2 40.6, VBG pO2 77.0 H, VBG HCO3 24.0, VBG Total CO2 25.3, VBG O2 Saturation 95.4 H, VBG Base Excess -0.9 I & O for Last 24 hours: Intake & Output 06/28/23 06/29/23 06/30/23 07/01/23 23:59 23:59 23:59 23:59 Weight 79.379 kg Constitutional Constitutional: disheveled and obtunded *Routine HEENT Exam Head: Present normocephalic
[2023-07-01 11:57] LABS: Barbiturates Screen,Urine Negative ng/ml (<200)
[2023-07-01 11:58] LABS: Benzodiazepines Screen,Urine Positive ng/ml (<200)
[2023-07-01 11:59] LABS: Cannabinoid Screen,Urine Negative ng/ml (<50); Cocaine Screen,Urine Negative ng/ml (<300)
[2023-07-01 12:00] LABS: Methadone Screen,Urine Negative ng/ml (<300)
[2023-07-01 12:01] LABS: Opiate Screen,Urine Negative ng/ml (<300); Phencyclidine Screen,Urine Negative ng/ml (<25)
[2023-07-01 12:20] LABS: Magnesium 2.2 mg/dl (1.6-2.3); Phosphorous 3.6 mg/dl (2.5-4.5)
[2023-07-01 12:21] LABS: Bacteria,Urine Trace /lpf; RBC,Urine Occasional #/hpf (0-3); Squamous Epithelial Cell,Urine Occasional #/hpf (0-5)
[2023-07-01 12:22] LABS: Activated Partial Thrombo Time 26.7 seconds (22.8-30.6)
[2023-07-01 12:30] LABS: Reflex Lactic Add Lactic Reflex
--- NOTE | 2023-07-01 12:31 | PC.NURSE ---
spoke with warehouse selector, states working on bed assignment r/t pt needs a stepdown bed
[2023-07-01 13:16] LABS: Troponin I < 0.01 ng/ml (0.00-0.034)
[2023-07-01 13:20] LABS: Lactic Acid Follow Up (RFLX 1) 0.7 mmol/L (0.7-2.1)
--- NOTE | 2023-07-01 14:05 | PC.NURSE ---
vital signs caught up but time did not change they were at 30 min intervals
--- NOTE | 2023-07-01 14:08 | PC.NURSE ---
attempted to call report to 2nd fl. accepting nurse, Rosa is at lunch and will have to call back
--- NOTE | 2023-07-01 14:29 | PC.NURSE ---
Gave report to Rosa MONZON on
--- NOTE | 2023-07-01 14:38 | HMH.PHAINT1 ---
Pharmacy Intervention Comments: Medication history complete, medications verified with fill history. - Bernadette Hill, PharmD Candidate 2023
--- NOTE | 2023-07-01 15:11 | PC.NURSE ---
arrived to floor by stretcher from ED
[2023-07-01 15:24] LABS: Anion Gap 11.2 mEq/L (5-15); Blood Urea Nitrogen 41 mg/dl (9-20); Calcium 8.3 mg/dl (8.4-10.2); Carbon Dioxide 27 mmol/L (22.0-30.0); Chloride 104 mmol/L (98-107); Creatinine Clearance Estimated 100 mL/min (50-200); Estimated Glomerular Filt Rate 71 ml/min (>60); GFR (African American) 85 ML/MIN (>60); Glucose 125 mg/dl (74-100); Potassium 4.2 mmoL/L (3.5-5.1); Sodium 138 mmol/L (136-145)
[2023-07-01 17:48] LABS: Creatine Kinase 23546 U/L (55-170)
--- NOTE | 2023-07-01 22:05 | PC.NURSE ---
notified emergency medicine at 2110 that pt CIWA was 21. stated to give ordered prn meds
[2023-07-01 22:31] LABS: Troponin I < 0.01 ng/ml (0.00-0.034)
[2023-07-01 22:47] LABS: Creatine Kinase 16511 U/L (55-170)
[2023-07-02] VITALS (13 sets, daily range): BP systolic 91–168; BP diastolic 42–107; PULSE 90–120; RESP 18–24; TEMP 36.7–37.8; O2SAT 94–98; BMI 28.0
[2023-07-02 10:45] LABS: Coronavirus 19, PCR Not Detected (NotDetected); Influenza A, PCR Not Detected (NotDetected); Influenza B, PCR Not Detected (NotDetected)
--- NOTE | 2023-07-02 13:30 | PC.NURSE ---
Pt has refused multiple IV sticks and is very uncooperative with staff. Staff has explained procedure and risks of not having IV access for treatment and he verbalizes understanding. notified.
--- NOTE | 2023-07-02 17:44 | PC.NURSE ---
Pt is alert to self. Baker removed per md order, pt has urinated multiple times since. He's ambulated to the bathroom with assist x2. 2 BM's this shift. IV was removed due to infiltration. Pt has refused to have a new one placed and has refused labs as well, MD aware. Most recent CIWA was 8. He's been sinus tach on telemetry. He is currently resting in bed with his eyes closed. Bed is locked and in the lowest position, call light is in reach.
--- NOTE | 2023-07-02 20:22 | EXP.ACUTE.PN ---
Subjective *Date: 07/02/23 *Time: 20:22 Interval history: Patient still agitated today however answers questions appropriately. Responds to name. Knows who he is and where he is. Is able to give surprisingly good details on history given his appearance on exam with his agitation and vitals instability. Continues to be hypertensive and tachycardic. Tolerating p.o. intake. Denies any nausea or vomiting. Able to ambulate to the bathroom. Stable on room air. Medical Exam Vital signs and Labs for Last 24 Hours: Vital Signs Temp Pulse Pulse Resp BP Pulse Ox O2 Del Method 07/02/23 16:00 100 H 07/02/23 18:43 Room Air 07/02/23 18:00 90 20 154/85 H 97 Room Air 07/02/23 17:00 Room Air 07/02/23 15:00 Room Air 07/02/23 16:00 98.3 F 07/02/23 14:00 110 H 20 168/107 H 97 Room Air 07/02/23 12:00 102 H 22 165/76 H 96 Nasal Cannula 07/02/23 10:00 107 H 24 151/76 H 96 Nasal Cannula 07/02/23 08:00 108 H 22 147/65 H 94 L Nasal Cannula 07/02/23 13:00 Nasal Cannula 07/02/23 11:00 Nasal Cannula 07/02/23 12:00 100 H 07/02/23 08:00 100 H 07/02/23 09:00 Nasal Cannula 07/02/23 08:00 98.1 F 07/02/23 06:59 Nasal Cannula 07/02/23 04:00 Nasal Cannula 07/02/23 05:09 100 H 07/02/23 04:44 Nasal Cannula 07/02/23 04:00 109 H 20 126/61 97 Nasal Cannula 07/02/23 03:15 Nasal Cannula 07/02/23 00:00 120 H 07/02/23 02:00 103 H 18 91/54 L 95 Nasal Cannula 07/02/23 01:00 Nasal Cannula 07/02/23 00:48 98.5 F 94 H 18 119/74 96 Nasal Cannula 07/01/23 23:00 Nasal Cannula 07/01/23 22:20 106 H 18 136/76 100 Nasal Cannula 07/01/23 21:00 Nasal Cannula O2 Flow Rate 07/02/23 16:00 07/02/23 18:43 07/02/23 18:00 07/02/23 17:00 07/02/23 15:00 07/02/23 16:00 07/02/23 14:00 07/02/23 12:00 07/02/23 10:00 2 07/02/23 08:00 2 07/02/23 13:00 07/02/23 11:00 07/02/23 12:00 07/02/23 08:00 07/02/23 09:00 2 07/02/23 08:00 07/02/23 06:59 2 07/02/23 04:00 2 07/02/23 05:09 07/02/23 04:44 2 07/02/23 04:00 2 07/02/23 03:15 2 07/02/23 00:00 07/02/23 02:00 2 07/02/23 01:00 2 07/02/23 00:48 2 07/01/23 23:00 2 07/01/23 22:20 2 07/01/23 21:00 2 Intake and Output 07/02/23 07/02/23 07/02/23 07:59 15:59 23:59 Intake Total 2966 / 4406 900 / 4406 540 / 4406 Output Total 800 / 2625 1825 / 2625 0 / 2625 Balance 2166 / 1781 -925 / 1781 540 / 1781 Intake: Intake, Oral Amount 160 / 1600 900 / 1600 540 / 1600 Intake, Total IV Amount 2806 / 2806 0.9 % Sodium Chloride 1000ML 1, 2806 / 2806 000 ml @ 150 mls/hr IV .[id number] [facility] Rx#:[id number] Output: Output, Urine Amount 800 / 1900 1100 / 1900 0 / 1900 Output, Urine Amount (Catheter) 725 / 725 Baker 725 / 725 Other: Number of Voids 0 Number of Unmeasured Voids 0 1 1 Number of Bowel Movements 1 Weight 88.904 kg Patient Weight 07/02/23 23:59 Weight 88.904 kg Laboratory Results - last 24 hr 07/01/23 21:45: Total Creatine Kinase 05382 H*, Troponin I < 0.01 07/02/23 10:40: SARS-CoV-2 (PCR) Not detected, Influenza A Untype (PCR) Not detected, Influenza Type B (PCR) Not detected I & O for Labs for Last 24 Hours: Intake & Output 06/29/23 06/30/23 07/01/23 07/02/23 23:59 23:59 23:59 23:59 Intake Total 4000 / 4000 4406 / 4406 Output Total 1375 / 1375 2625 / 2625 Balance 2625 / 2625 1781 / 1781 Weight 84.623 kg 88.904 kg Microbiology Reports for the Last 24 Hours: Microbiology 07/01/23 11:30 Urine,Catheterized Urine Culture - Preliminary NO GROWTH AFTER 24 HOURS Constitutional: Present mild distress, average body habitus, disheveled, cooperative and agitated Head: Present atraumatic and normocephalic ENT: Present normal exam Comment:: Pupils equal and reac
[2023-07-03] VITALS (17 sets, daily range): BP systolic 102–154; BP diastolic 45–105; PULSE 50–100; RESP 15–20; TEMP 36.6–37.8; O2SAT 94–100; BMI 27.2; BMI 27.1
--- NOTE | 2023-07-03 06:47 | PC.NURSE ---
Pt has remained very confused, a/o to person only. Pt has continued to refuse all lab sticks and IV access. Pt has been ambulating to BR with 2x assist. Very unsteady. Call light within reach. Bed alarm on for pt safety. CIWA up to 19 throughout night
--- NOTE | 2023-07-03 07:30 | PC.NURSE ---
lab called and spoke with Stephy about obtaining labs on patient.
--- NOTE | 2023-07-03 10:11 | PC.NURSE ---
lab at bedside.
[2023-07-03 10:15] LABS: Basophils % 0.7 % (0.1-2.0); Eosinophils # 0.2 K/mm3 (0.0-0.4); Eosinophils % 3.1 % (0.1-12.0); Hematocrit 42.8 % (42.0-52.0); Hemoglobin 14.2 g/dL (14.1-18.0); Lymphocytes # 1.5 K/mm3 (0.7-4.5); Lymphocytes % 30.2 % (10-50); Mean Corpuscular HGB Conc 33.2 g/dL (31.8-35.4); Mean Corpuscular Hemoglobin 30.5 pg (27.0-31.2); Mean Corpuscular Volume 91.8 fl (80-94); Mean Platelet Volume 8.1 fl (7.4-10.4); Monocytes # 0.3 K/mm3 (0.1-1.0); Monocytes % 5.4 % (1.7-9.3); Neutrophils % 60.5 % (37.0-80.0); Platelet Count 226 K/mm3 (142-424); Red Blood Count 4.66 M/mm3 (4.60-6.20); Red Cell Distribution Width 14.6 % (11.5-17.5)
[2023-07-03 10:19] LABS: Chloride 107 mmol/L (98-107); Potassium 4.1 mmoL/L (3.5-5.1); Sodium 139 mmol/L (136-145)
--- NOTE | 2023-07-03 10:20 | SW/DCPLANNER ---
Addendum entered by Martina Ray 07/03/23 11:39: Due to patient's request I have called and updated patient's sister (Francoise) regarding discharge plans to [facility] tomorrow pending no setbacks. Original Note: Patient expressed an interest in returning to rehab at [facility] in [facility]. I called and spoke with Admission Dept at [facility]: they are familiar with this patient and they are willing to accept him once medically stable for discharge. I updated Admissions that patient could be ready for discharge tomorrow. [facility] also confirmed they will transport this patient once medically stable for discharge. I will continue to update patient, MD and [facility].
[2023-07-03 10:21] LABS: Alanine Aminotransferase 217 U/L (12-78); Aspartate Amino Transferase 451 U/L (17-59); Blood Urea Nitrogen 15 mg/dl (9-20); Creatinine Clearance Estimated 187 mL/min (50-200); Estimated Glomerular Filt Rate 132 ml/min (>60); GFR (African American) 159 ML/MIN (>60)
[2023-07-03 10:22] LABS: Albumin Level 3.4 g/dl (3.5-5.0); Albumin/Globulin Ratio 1.2 (1.1-1.8); Alkaline Phosphatase 70 U/L (38-126); Anion Gap 8.1 mEq/L (5-15); Bilirubin,Total 0.7 mg/dl (0.2-1.3); Calcium 9.2 mg/dl (8.4-10.2); Carbon Dioxide 28 mmol/L (22.0-30.0); Globulin 2.9 g/dL (1.3-3.2); Glucose 118 mg/dl (74-100); Total Protein,Serum 6.3 g/dl (6.3-8.2)
[2023-07-03 12:01] LABS: Creatine Kinase 5125 U/L (55-170)
--- NOTE | 2023-07-03 13:29 | EXP.ACUTE.PN ---
Subjective *Date: 07/03/23 *Time: 13:29 Interval history: Patient feeling better this morning. Not having as many movements. Does not appear as agitated. Tolerating p.o. intake. Voiding independently. Had a bowel movement today. No nausea or vomiting. Denies any chest pain or shortness of breath. Alert and oriented x3. Medical Exam Vital signs and Labs for Last 24 Hours: Vital Signs Temp Pulse Pulse Resp BP Pulse Ox O2 Del Method 07/03/23 12:55 Room Air 07/03/23 11:39 98.0 F 90 18 152/88 H 98 Room Air 07/03/23 11:00 Room Air 07/03/23 10:00 79 18 137/86 99 Room Air 07/03/23 09:00 Room Air 07/03/23 08:00 90 07/03/23 08:01 100 H 18 142/105 H 99 Room Air 07/03/23 07:50 100 H 96 Room Air 07/03/23 07:50 100 H 07/03/23 07:31 98.3 F 07/03/23 04:00 58 L 15 121/73 95 Room Air 07/03/23 06:00 65 16 154/101 H 94 L Room Air 07/03/23 06:44 Room Air 07/03/23 05:00 Room Air 07/03/23 04:00 70 07/03/23 04:00 97.8 F 07/03/23 03:00 Room Air 07/03/23 02:00 92 H 16 102/45 L 99 Room Air 07/03/23 01:00 Room Air 07/02/23 23:00 Room Air 07/02/23 21:00 Room Air 07/02/23 20:00 98 Room Air 07/03/23 00:00 100 H 18 111/45 L 98 Room Air 07/02/23 22:00 99 H 18 114/45 L 98 Room Air 07/02/23 20:00 102 H 20 119/42 L 98 Room Air 07/03/23 00:00 90 07/03/23 00:00 100.1 F H 07/02/23 20:00 90 07/02/23 20:00 100.0 F H 07/02/23 16:00 100 H 07/02/23 18:43 Room Air 07/02/23 18:00 90 20 154/85 H 97 Room Air 07/02/23 17:00 Room Air 07/02/23 15:00 Room Air 07/02/23 16:00 98.3 F 07/02/23 14:00 110 H 20 168/107 H 97 Room Air Intake and Output 07/02/23 07/03/23 07/03/23 23:59 07:59 15:59 Intake Total 540 / 4406 240 / 1513 1273 / 1513 Output Total 0 / 2625 0 / 0 0 / 0 Balance 540 / 1781 240 / 1513 1273 / 1513 Intake: Intake, Oral Amount 540 / 1600 240 / 1513 1273 / 1513 Output: Output, Urine Amount 0 / 1900 0 / 0 0 / 0 Other: Number of Unmeasured Voids 1 1 1 Number of Bowel Movements 1 Weight 86.268 kg Patient Weight 07/03/23 23:59 Weight 86.268 kg Laboratory Results - last 24 hr 07/03/23 10:05: WBC 5.0 D, RBC 4.66, Hgb 14.2, Hct 42.8, MCV 91.8, MCH 30.5, MCHC 33.2, RDW 14.6, Plt Count 226 D, MPV 8.1, Neut % (Auto) 60.5, Lymph % (Auto) 30.2, Harnett % (Auto) 5.4, Eos % (Auto) 3.1, Baso % (Auto) 0.7, Neut # (Auto) 3.0, Lymph # (Auto) 1.5, Harnett # (Auto) 0.3, Eos # (Auto) 0.2, Baso # (Auto) 0.0, Sodium 139, Potassium 4.1, Chloride 107, Carbon Dioxide 28, Anion Gap 8.1, BUN 15 D, Creatinine 0.70 D, Estimated Creat Clear 187, Estimated GFR 132, Est GFR ( Amer) 159 D, Glucose 118 H, Calcium 9.2, Total Bilirubin 0.7, AST 451 H* D, ALT 217 H, Alkaline Phosphatase 70, Total Creatine Kinase 5125 H* D, Total Protein 6.3 D, Albumin 3.4 L, Globulin 2.9, Albumin/Globulin Ratio 1.2 I & O for Labs for Last 24 Hours: Intake & Output 06/30/23 07/01/23 07/02/23 07/03/23 23:59 23:59 23:59 23:59 Intake Total 4000 / 4000 4406 / 4406 1513 / 1513 Output Total 1375 / 1375 2625 / 2625 0 / 0 Balance 2625 / 2625 1781 / 1781 1513 / 1513 Weight 84.623 kg 88.904 kg 86.268 kg Microbiology Reports for the Last 24 Hours: Microbiology 07/01/23 10:00 Blood Blood Culture - Preliminary NO GROWTH AFTER 48 HOURS 07/01/23 08:24 Blood Blood Culture - Preliminary NO GROWTH AFTER 48 HOURS 07/01/23 11:30 Urine,Catheterized Urine Culture - Final NO GROWTH AFTER 48 HOURS Constitutional: Present mild distress, average body habitus, disheveled, cooperative and agitated Head: Present atraumatic and normocephalic ENT: Present normal exam Comment:: Pupils equal and reactive, extraocular movements in
[2023-07-03 16:20] LABS: Amphetamine Positive (.); Amphetamine (GC/MS) >3000 ng/mL (Cutoff=500); Amphetamines Positive (.); Methamphetamine Positive (.); Methamphetamine (GC/MS) >3000 ng/mL (Cutoff=500)
--- NOTE | 2023-07-03 17:12 | PC.NURSE ---
pt has been alert and oriented t/ this shift. pt KIARRA initially this am was 7 and is currently 1. LS clear t/o. abdomen soft, nontender. bowel sounds active. pt has had bed alarm in place t/o shift and has required assistance to the bathroom. pt has been walking to the bathroom. pt does have periods of forgetting plan of care. [facility] social professionals spoke with patient today regarding potential discharge tomorrow to [facility]. Pt's sister Charmaine has called and was updated on POC. call light w/i reach.
[2023-07-04] VITALS: PULSE 70
[2023-07-04 04:00] VITALS: BP 106/59; PULSE 73; RESP 18; TEMP 37.1; O2SAT 97; BMI 25.9
--- NOTE | 2023-07-04 07:46 | EXP.DC.SUM ---
General Admission date:: 07/01/23 Discharge date: 07/04/23 HPI HPI HPI: Mr. Tatum is a 32 year old male with a history of methamphatamine abuse and who presented to the ED with confusion. Evaluation and workup in the ED revealed tachycardia with HR 130, tachypnea with RR 34, leukocytosis with 23K wbcs, creatinine of 1.9, BUN 50, CK of 29K, AST 640, ALT 213, t. bili 1.7, and a UDS +amphetamine/benzodiazepines. He has been to our ED multiple times regarding medical clearance for incarceration. He intermittently responds to my questions with one word responses. He denies pain and shortness of breath. Hospital Course Hospital Course Hospital Course: 32-year-old male admitted for encephalopathy, rhabdo, CARINA. Concern for alcohol intoxication and methamphetamine use. Drug screen positive fro amphetamines and Benzos (benzos given in ER). Alcohol level negative. In light of his elevated CK, altered mental status, autonomic instability, and increased rigidity, suspected diagnosis at this time is most likely neuroleptic malignant syndrome. The amphetamines complicate his presentation but do not account for the complete picture of his symptoms and metabolic/physiologic disturbances. Held antipsychotics during admission, Patient showing clinical improvement. Meeting stability for discharge at this time. Patient is interested in going back to inpatient rehab. We have reached out to [facility] in [place], [place] who have agreed to accept the patient for rehab. Patient agreeable with this plan. Stable for discharge. Problems addressed as follows #NMS, Resolved #Amphetamine toxicity, resolved #rhabdomyolysis, improving #CARINA, resolved #Toxic encephalopathy,resolved Patient presented frankly altered. Had significant agitation, increased rigidity, autonomic instability, movements suspicious for tardive dyskinesia. Grossly abnormal labs with acute kidney injury and rhabdomyolysis. CK of 30,000 on admission. Improved to 5000-day before discharge. Kidney function is normalized. AST and ALT are improving, likely from muscle component as well as possible liver component. Given patient's improvement and clinical stability, he is stable for discharge to next site of care. Multiple discussions about rehab, patient is [facility] and [facility] in going [facility]. They have graciously excepted the patient for continued treatment. He is tolerating good p.o. intake. Encouraged to adequately hydrate as his enzyme abnormalities improve. During hospitalization was treated with CIWA protocol but has been weaned off of benzodiazepines over the past 24 to 48 hours. Plan to continue his home atenolol for blood pressure, bupropion for mood, trazodone for sleep. Patient found to have some groundglass opacities initially on admission. Tolerated antibiotics well, will complete 2 more days of levofloxacin after discharge. Stable on room air. Would strongly recommend holding numerous antipsychotics as they are likely a culprit in his neuroleptic malignant syndrome. If he did need to resume psychiatric meds, would recommend extreme caution and avoid Risperdal. We do not recommend combination antipsychotics in his case. Stable for discharge. Medications sent electronically to [facility] in [place]. Exam Data for Last 24 hours Vital signs and Labs for Last 24 Hours: Temp Pulse Resp BP Pulse Ox O2 Del Method O2 Flow Rate 98.7 F 73 18 106/59 L 97 Room Air 2 07/04/23 04:00 07/04/23 04:00 07/04/23 04:00 07/04/23 04:00 07/04/23 04:00 07/04/23 07:00 07/02/23 10:00 Laboratory Results - last 24 hr 07/01/23 11:30: Ur Amphetamine Qual Positive A, Ur Amphetamines Screen Positive A, U Amphetam Cnfrm GC/MS >3000, U Methamphetamines Scrn Positive A, U Methamphetamin GC/MS >3000, Urine Drug Screen Note Comment 07/03/23 10:05: WBC 5.0 D, RBC 4.66, Hgb 14.2, Hct 42.8, MCV 91.8, MCH 30
[2023-07-04 07:47] VITALS: BP 109/70; PULSE 68; RESP 16; TEMP 36.8; O2SAT 94
[2023-07-04 18:24] LABS: HBsAg Screen Negative (Negative); HCV Ab Reactive (Non Reactive); Hep A Ab, IGM Negative (Negative); Hep B Core Ab, IgM Negative (Negative)
== END 2023-07-04 10:20 | disposition other institution (70) | DRG 896 ==
LOC: ER 12:03 → 2ND 12:37
PROVIDERS: Internal Medicine Adolescent Medicine; Admitting Provider Internal Medicine; Emergency Provider Emergency Medicine; Visit Provider Internal Medicine
DX: F15.129 Other stimulant abuse with intoxication, unspecified (principal); G92.8 Other toxic encephalopathy; M62.82 Rhabdomyolysis; N17.9 Acute kidney failure, unspecified; F17.210 Nicotine dependence, cigarettes, uncomplicated
CPT/HCPCS: 36415; 70450; 71045; 71275; 74177; 76705; 80048; 80053; 80074; 80305; 80324; 80329; 81001; 82550; 82803; 83605; 83735; 84100; 84145; 84436; 84443; 84484; 85007; 85025; 85730; 87040; 87086; 87636; 93005; 99291; J1790